=== PATIENT | female | born 2000 | race African-American/Black ===

== ENCOUNTER 2022-04-22 14:30 | Day surgery (SDC) | payer OTHER ==
[2022-04-22] MEDS ORDERED: hydrALAZINE 20 MG/ML VIAL SLOW IVP PRN (14:53)
[2022-04-22] MEDS ORDERED: Lactated Ringer's 1,000 ML IV SCH (16:00)
== END 2022-04-22 19:15 | disposition home or self-care (01) ==
LOC: CSHLD/OP 14:30
PROVIDERS: ATTEND Obstetrics & Gynecology
DX: O47.03 False labor before 37 completed weeks of gestation, third trimester (principal); Z3A.34 34 weeks gestation of pregnancy
CPT/HCPCS: 36416

== ENCOUNTER 2022-05-31 15:15 | Outpatient (CLI) | payer OTHER | END 2022-05-31 15:16 | disposition home or self-care (01) | LOC: CSHLAB 15:15 | PROVIDERS: ATTEND Obstetrics & Gynecology | DX: Z20.822 Contact with and (suspected) exposure to COVID-19 (principal) | CPT/HCPCS: 87811 ==

== ENCOUNTER 2022-06-04 05:30 | Inpatient (IN) | payer OTHER ==
[2022-06-04] MEDS: Lactated Ringer's 1,000 ML IV SCH ×2 (07:00→19:45)
[2022-06-04 07:46] VITALS: BMI 33.6
[2022-06-04] MEDS ORDERED: Promethazine HCl 25 MG/ML VIAL IM PRN (08:11)
[2022-06-04] MEDS ORDERED: hydrALAZINE 20 MG/ML VIAL SLOW IVP PRN (08:11)
[2022-06-04] MEDS ORDERED: Ondansetron PF 4 MG/2 ML Vial IVP PRN (08:11)
[2022-06-04] MEDS ORDERED: Misoprostol 200 MCG TAB PR PRN (08:11)
[2022-06-04] MEDS ORDERED: Acetaminophen 500 MG TAB PO PRN (08:11)
[2022-06-04] MEDS ORDERED: Methylergonovine 0.2 MG/ML VIAL IM PRN (08:11)
[2022-06-04] MEDS ORDERED: Carboprost 250 MCG/ML AMP IM PRN (08:11)
[2022-06-04] MEDS ORDERED: Butorphanol Tartrate 1 MG/ML VIAL SLOW IVP PRN (08:11)
[2022-06-04] MEDS ORDERED: Ibuprofen 800 MG TAB PO PRN (08:11)
[2022-06-04] MEDS ORDERED: Lidocaine 1% (PF) 30 ML VIAL SC PRN (08:11)
[2022-06-04] MEDS ORDERED: NS w/ Oxytocin 30 units 500 ML IV SCH ×2 (08:15)
[2022-06-04 08:27] LABS: Hemoglobin 9.9 g/dL (12.0-15.5); Mean Corpuscular HGB CONC 32.9 g/dL (32.0-36.0); Platelet Count 226 10x3/uL (150-450); RBC Distribution Width 13.8 % (11.5-14.5); Red Blood Cell (RBC) Count 3.96 10x6/uL (3.90-5.03); White Blood Cell (WBC) Count 8.3 10x3/uL (3.5-10.5)
[2022-06-04] MEDS: Misoprostol 100 MCG TAB VAG SCH ×2 (08:35→18:04)
[2022-06-04 09:04] LABS: Syphilis Antibody Nonreactive (Nonreactive); Syphilis Antibody Index 0.05 S/CO (<1.00 Non-Reactive)
[2022-06-04 09:39] LABS: HBSAg Index 0.23 S/CO (0-0.99); Hep B Surf Ag NonReactive S/CO (NonReactive)
[2022-06-04] MEDS ORDERED: Terbutaline Sulfate 1 MG/ML VIAL ONE (12:03)
[2022-06-05] MEDS ORDERED: Misoprostol 100 MCG TAB ONE (07:33)
[2022-06-05] MEDS ORDERED: Terbutaline Sulfate 1 MG/ML VIAL ONE (11:40)
[2022-06-05] MEDS ORDERED: CEFAZOLIN 2 GM VIAL ONE (16:00)
[2022-06-05] MEDS ORDERED: Morphine PF 10 MG/10 ML VIAL ONE (16:26)
[2022-06-05] MEDS ORDERED: Fentanyl 100 MCG/2 ML VIAL ONE (16:27)
[2022-06-05] MEDS ORDERED: Ketorolac Tromethamine 30 MG/ML VIAL ONE (16:29)
[2022-06-05] MEDS ORDERED: Ondansetron PF 4 MG/2 ML Vial ONE (16:29)
[2022-06-05] MEDS ORDERED: Oxytocin 10 UNITS/ML VIAL ONE (16:29)
[2022-06-05] MEDS ORDERED: Dexamethasone 4 mg/ml Vial ONE (16:29)
[2022-06-05] MEDS ORDERED: Ondansetron HCl/PF 4 MG/2 ML Vial IVP PRN (17:36)
[2022-06-05] MEDS ORDERED: Ketorolac Tromethamine 30 MG/ML VIAL IVP PRN (17:36)
[2022-06-05] MEDS ORDERED: Naloxone HCl 0.4 mg/ml Vial IV PRN (17:36)
[2022-06-05] MEDS ORDERED: Moisturizing Cream (Eucerin) 113 GM JAR TOP PRN (17:36)
[2022-06-05] MEDS ORDERED: Fentanyl 100 MCG/2 ML VIAL SLOW IVP PRN (17:36)
[2022-06-05] MEDS ORDERED: HYDROmorphone 2 MG/ML VIAL SLOW IVP PRN (17:36)
[2022-06-05] MEDS ORDERED: Promethazine HCl 25 MG/ML VIAL IM PRN (17:36)
[2022-06-05] MEDS ORDERED: Meperidine HCl/PF 25 MG/ML VIAL SLOW IVP PRN (17:36)
[2022-06-05] MEDS ORDERED: Ondansetron PF 4 MG/2 ML Vial IVP PRN (17:36)
[2022-06-05] MEDS ORDERED: Promethazine HCl 25 MG SUPP PR PRN (17:36)
[2022-06-05] MEDS ORDERED: Naloxone HCl 0.4 mg/ml Vial IVP PRN ×2 (17:36)
[2022-06-05] MEDS ORDERED: Communication Order-Pharmacy FS SCH (17:45)
[2022-06-05] MEDS ORDERED: Ketorolac Tromethamine 30 MG/ML VIAL IVP SCH (17:45)
[2022-06-05] MEDS: diphenhydrAMINE 50 MG/ML VIAL IVP PRN (20:07)
[2022-06-05] MEDS ORDERED: HYDROcodone/Acetaminophen 5/325 mg Tablet PO PRN ×2 (21:42)
[2022-06-05] MEDS ORDERED: Bisacodyl 10 MG SUPP PR PRN (21:42)
[2022-06-05] MEDS ORDERED: Simethicone Chewable 80 MG TAB PO PRN (21:42)
[2022-06-05] MEDS ORDERED: Lanolin Ointment 7 GM TUBE TOP PRN (21:42)
[2022-06-05] MEDS ORDERED: Boostrix 0.5 ML (Tdap) VIAL IM ONE (21:42)
[2022-06-05] MEDS ORDERED: Docusate 100 MG CAP PO SCH (22:00)
[2022-06-05] MEDS: Acetaminophen 500 MG TAB PO SCH (22:11)
[2022-06-05] MEDS: Lactated Ringer's 1,000 ML IV SCH (23:39)
[2022-06-06] MEDS: Acetaminophen 500 MG TAB PO SCH ×3 (05:06→17:39)
[2022-06-06] MEDS: diphenhydrAMINE 50 MG/ML VIAL IVP PRN (05:07)
[2022-06-06 05:10] LABS: Hemoglobin 8.9 g/dL (12.0-15.5); Mean Corpuscular HGB CONC 32.2 g/dL (32.0-36.0); Mean Corpuscular Hemoglobin 24.2 pg (27.0-33.0); Mean Platelet Volume 11.3 fl (7.4-10.4); Platelet Count 185 10x3/uL (150-450); RBC Distribution Width 13.8 % (11.5-14.5); Red Blood Cell (RBC) Count 3.68 10x6/uL (3.90-5.03); White Blood Cell (WBC) Count 14.3 10x3/uL (3.5-10.5)
[2022-06-06] MEDS: Docusate 100 MG CAP PO SCH ×2 (09:06→21:46)
[2022-06-06] MEDS: Prenatal Vitamin 1 TAB PO SCH (09:06)
[2022-06-06] MEDS: Ibuprofen 800 MG TAB PO SCH ×2 (14:48→21:45)
[2022-06-07] MEDS: Acetaminophen 500 MG TAB PO SCH ×3 (01:22→11:32)
[2022-06-07] MEDS: Ibuprofen 800 MG TAB PO SCH ×2 (05:58→13:52)
[2022-06-07] MEDS: Docusate 100 MG CAP PO SCH (08:53)
[2022-06-07] MEDS: Prenatal Vitamin 1 TAB PO SCH (08:53)
[2022-06-07 15:53] VITALS: BP 139/80; TEMP 98.7
== END 2022-06-07 17:10 | disposition home or self-care (01) | DRG 788 ==
LOC: CSHLD 05:50 → CSHPED 06-05 21:30
PROVIDERS: ADMIT Obstetrics & Gynecology; ATTEND Obstetrics & Gynecology
PROC: 10D00Z1 Extraction of Products of Conception, Low, Open Approach (ICD-10-PCS; principal; 2022-06-05)
DX: O48.0 Post-term pregnancy (principal); O99.344 Other mental disorders complicating childbirth; Z3A.40 40 weeks gestation of pregnancy; F41.9 Anxiety disorder, unspecified; F32.A Depression, unspecified; O76 Abnormality in fetal heart rate and rhythm complicating labor and delivery
CPT/HCPCS: 36415; 51702; 85027; 86780; 86850; 86900; 86901; 87340; J1100; J1200; J1885; J2274; J2405; J2590; J3010; J3105; J7120

== ENCOUNTER 2022-10-09 17:53 | Emergency (ER) | payer OTHER ==
[2022-10-09 18:23] LABS: Bilirubin Neg (Negative); Blood, Urine Negative (Negative); Clarity Clear (Clear); Glucose, Urine (Dipstick) Normal (Negative); Ketone, Urine Negative (Negative); Leukocyte 25 (Negative); Nitrite Negative (Negative); Protein, Urine (Dipstick) 15 mg/dl (Neg-Trace); Urobilinogen Normal mg/dL (Less than 2); pH, Urine 6.5 (5.0-9.0)
[2022-10-09 18:28] LABS: Bacteria/HPF Rare-Few HPF (None Seen); RBC/HPF 0-3 HPF (0-3); Squamous Epithelial 0-3 HPF (0-3); WBC/HPF 0-3 HPF (0-3)
[2022-10-09] MEDS ORDERED: Ondansetron PF 4 MG/2 ML Vial ONE (19:00)
[2022-10-09 19:02] LABS: #Eosinphils 0.3 10x3/uL (0.0-0.5); #Monocytes 0.3 10x3/uL (0.0-1.1); #Neutrophils 4.9 10x3/uL (1.5-8.4); %Basophils 0.1 % (0.0-2.0); %Eosinophils 4.4 % (0.0-6.0); %Lymphocytes 25.6 % (18.0-47.0); %Monocytes 4.5 % (0.0-10.0); %Neutrophils 65.1 % (40.0-75.0); Hemoglobin 12.4 g/dL (12.0-15.5); Mean Corpuscular HGB CONC 32.6 g/dL (32.0-36.0); Mean Corpuscular Volume 79.7 fl (81.6-98.3); Platelet Count 332 10x3/uL (150-450); RBC Distribution Width 15.1 % (11.5-14.5); Red Blood Cell (RBC) Count 4.77 10x6/uL (3.90-5.03); White Blood Cell (WBC) Count 7.5 10x3/uL (3.5-10.5)
[2022-10-09 19:10] LABS: BHCG - Serum Negative (NEGATIVE); Pregs Control Background? CLEAR/WHITE (CLR/WHITE); Pregs Control Bar Appear? YES (CONTROL BAR)
[2022-10-09 19:18] LABS: ALT (SGPT) 12 U/L (8-55); AST (SGOT) 12 U/L (5-34); Albumin 4.7 g/dL (3.5-5.0); Alkaline Phosphatase 91 U/L (40-100); Anion Gap 15 mmol/L (10-20); BUN (Urea Nitrogen) 10 mg/dL (7.0-18.7); Bilirubin, Total 0.4 mg/dL (0.2-1.2); Calc. Creatinine Clearance 0 mL/min (70-130); Calcium 9.4 mg/dL (7.8-10.44); Carbon Dioxide 23 mmol/L (22-29); Chloride 107 mmol/L (98-107); Estimated GFR 102; Globulin 3.1 g/dL (2.4-3.5); Glucose 95 mg/dL (70-105); Lipase 26 U/L (8-78); Potassium 3.7 mmol/L (3.5-5.1); Protein, Total 7.8 g/dL (6.0-8.3); Sodium 141 mmol/L (136-145)
== END 2022-10-09 19:38 | disposition home or self-care (01) ==
LOC: CSHERS 17:53
DX: R11.0 Nausea (principal); R19.7 Diarrhea, unspecified
CPT/HCPCS: 80053; 81003; 81015; 83690; 84703; 85025; 96361; 96374; J2405

== ENCOUNTER 2022-10-20 16:54 | Emergency (ER) | payer OTHER | END 2022-10-20 18:15 | disposition home or self-care (01) | LOC: CSHERS 16:54 | DX: S39.012A Strain of muscle, fascia and tendon of lower back, initial encounter (principal); V49.9XXA Car occupant (driver) (passenger) injured in unspecified traffic accident, initial encounter; Y92.410 Unspecified street and highway as the place of occurrence of the external cause | CPT/HCPCS: 99283 ==

== ENCOUNTER 2023-01-23 08:48 | Emergency (ER) | payer OTHER ==
[2023-01-23 09:43] LABS: Bilirubin Neg (Negative); Blood, Urine Negative (Negative); Clarity Clear (Clear); Glucose, Urine (Dipstick) Normal (Negative); Ketone, Urine Negative (Negative); Leukocyte 25 (Negative); Nitrite Negative (Negative); Protein, Urine (Dipstick) 15 mg/dl (Neg-Trace); pH, Urine 6.5 (5.0-9.0)
[2023-01-23 09:46] LABS: Pregnancy Test - Urine (BHCG) Negative (Negative); Pregu Control Background? CLEAR/WHITE (CLR/WHITE); Pregu Control Bar Appear? YES (CONTROL BAR)
[2023-01-23 09:50] LABS: #Eosinphils 0.2 10x3/uL (0.0-0.5); #Monocytes 0.5 10x3/uL (0.0-1.1); %Basophils 0.3 % (0.0-2.0); %Eosinophils 2.5 % (0.0-6.0); %Lymphocytes 44.9 % (18.0-47.0); %Monocytes 6.9 % (0.0-10.0); %Neutrophils 45.2 % (40.0-75.0); Hemoglobin 10.8 g/dL (12.0-15.5); Mean Corpuscular HGB CONC 31.5 g/dL (32.0-36.0); Mean Corpuscular Hemoglobin 25.4 pg (27.0-33.0); Mean Corpuscular Volume 80.7 fl (81.6-98.3); Mean Platelet Volume 9.4 fl (7.4-10.4); Platelet Count 307 10x3/uL (150-450); RBC Distribution Width 14.2 % (11.5-14.5); Red Blood Cell (RBC) Count 4.25 10x6/uL (3.90-5.03); White Blood Cell (WBC) Count 6.5 10x3/uL (3.5-10.5)
[2023-01-23 10:04] LABS: ALT (SGPT) 9 U/L (8-55); AST (SGOT) 11 U/L (5-34); Albumin 4.1 g/dL (3.5-5.0); Alkaline Phosphatase 67 U/L (40-100); Anion Gap 13 mmol/L (10-20); BUN (Urea Nitrogen) 13 mg/dL (7.0-18.7); Bilirubin, Total 0.2 mg/dL (0.2-1.2); Calc. Creatinine Clearance 0 mL/min (70-130); Calcium 8.7 mg/dL (7.8-10.44); Carbon Dioxide 23 mmol/L (22-29); Chloride 107 mmol/L (98-107); Estimated GFR 107; Globulin 2.8 g/dL (2.4-3.5); Glucose 96 mg/dL (70-105); Protein, Total 6.9 g/dL (6.0-8.3); Sodium 139 mmol/L (136-145)
[2023-01-23 10:08] LABS: Bacteria/HPF Rare-Few HPF (None Seen); RBC/HPF 0-3 HPF (0-3); Squamous Epithelial 0-3 HPF (0-3); WBC/HPF 0-3 HPF (0-3)
[2023-01-23] MEDS ORDERED: Acetaminophen 325 MG TAB ONE (10:34)
== END 2023-01-23 10:34 | disposition home or self-care (01) ==
LOC: CSHERS 08:48
DX: R42 Dizziness and giddiness (principal)
CPT/HCPCS: 36415; 80053; 81003; 81015; 81025; 83735; 85025; 99284

== ENCOUNTER 2025-10-06 08:03 | Emergency (ER) | payer OTHER, SELFPAY ==
[2025-10-06] MEDS ORDERED: Acetaminophen 500 MG TAB ONE (08:31)
== END 2025-10-06 09:23 | disposition home or self-care (01) ==
LOC: CSHERS 08:03
DX: S63.502A Unspecified sprain of left wrist, initial encounter (principal); J06.9 Acute upper respiratory infection, unspecified; X58.XXXA Exposure to other specified factors, initial encounter
CPT/HCPCS: 71045